=== PATIENT | male | born 1965 | race African-American/Black ===

== ENCOUNTER 2020-09-10 15:30 | Emergency (ER) | payer MEDICAID ==
[~2020-09-10] VITALS: Ht 180.3 cm; Wt 83.0 kg
--- NOTE | 2020-09-10 17:49 | NUR ---
PT TO ROOM FROM LOBBY
--- NOTE | 2020-09-10 17:58 | NUR ---
THIS IS A 55 YEAR OLD MALE WHO C/O COUGH, MUSCLE ACHES, SOB, N/V X 7 DAYS. PT DENIES ANY MEDICAL HISTORY, WARM BLANKET GIVEN, AWAIT MD FOR ORDERS
--- NOTE | 2020-09-10 18:51 | NUR ---
REPORT TO BELINDA GRIMALDO, PLAN OF CARE DISCUSSED
[2020-09-10 20:15] VITALS: BP 132/74
== END 2020-09-10 20:17 | disposition home or self-care (01) ==
LOC: ED 19:50
DX: J06.9 Acute upper respiratory infection, unspecified (principal); Z20.822 Contact with and (suspected) exposure to COVID-19; B34.9 Viral infection, unspecified; R11.2 Nausea with vomiting, unspecified; R06.02 Shortness of breath
CPT/HCPCS: 71045; 99284; U0003; U0005